=== PATIENT | male | born 1955 | race Caucasian/White ===

== ENCOUNTER 2018-06-25 08:09 | Day surgery (SDC) | payer OTHER ==
[2018-06-21 14:38] VITALS: BMI 25.0
[2018-06-25] MEDS ORDERED: PROPOFOL 20 ML ONE ×2 (08:19)
[2018-06-25] MEDS ORDERED: LIDOCAINE HCL/PF 2% SDV 5ML VIAL ONE (08:19)
[2018-06-25 10:44] VITALS: TEMP 97.8
[2018-06-25 10:46] VITALS: BP 114/66; PULSE 74
== END 2018-06-25 11:01 | disposition home or self-care (01) ==
LOC: FASU-ENDO 08:09
PROVIDERS: ATTEND Internal Medicine Gastroenterology
PROC: 0DJD8ZZ Inspection of Lower Intestinal Tract, Via Natural or Artificial Opening Endoscopic (ICD-10-PCS; principal; 2018-06-25 09:47)
DX: Z12.11 Encounter for screening for malignant neoplasm of colon (principal); Z80.0 Family history of malignant neoplasm of digestive organs